=== PATIENT | female | born 1995 | race Caucasian/White ===

== ENCOUNTER 2017-07-23 00:17 | Emergency (ER) | payer BC, OTHER ==
[2017-07-23] MEDS ORDERED: Acetaminophen 500 MG TAB ONE (00:27)
[2017-07-23 01:27] LABS: #Basophils 0.1 thou/uL (0.0-0.2); #Eosinphils 0.1 thou/uL (0.0-0.7); #Lymphocytes 1.3 thou/uL (1.20-3.40); #Neutrophils 11.6 thou/uL (1.40-6.50); %Basophils 0.6 % (0.0-1.0); %Eosinophils 0.4 % (0.0-10.0); %Lymphocytes 9.4 % (21.0-51.0); %Monocytes 7.1 % (0.0-10.0); Hematocrit 41.8 % (36.0-47.0); Mean Platelet Volume 7.2 fL (7.4-10.4); Red Blood Cell (RBC) Count 4.54 mill/uL (4.20-5.40)
[2017-07-23 01:45] LABS: ALT (SGPT) 24 U/L (8-55); AST (SGOT) 13 U/L (5-34); Alkaline Phosphatase 67 U/L (40-150); Anion Gap 12 mmol/L (10-20); BUN (Urea Nitrogen) 12 mg/dL (7.0-18.7); Bilirubin, Total 0.5 mg/dL (0.2-1.2); Calc. Creatinine Clearance 0 mL/min (70-130); Calcium 9.7 mg/dL (7.8-10.44); Carbon Dioxide 23 mmol/L (22-29); Chloride 103 mmol/L (98-107); Estimated GFR-MDRD Greater than 90; Globulin 3.6 g/dL (2.4-3.5); Protein, Total 7.7 g/dL (6.0-8.3)
[2017-07-23 02:31] LABS: Bilirubin Negative (Negative); Blood, Urine Trace (Negative); Glucose, Urine (Dipstick) Negative (Negative); Ketone, Urine Negative (Negative); Nitrite Negative (Negative); Protein, Urine (Dipstick) Negative (Neg-Trace); Urobilinogen 0.2 mg/dL (0.2-1.0)
[2017-07-23 02:33] LABS: Bacteria/HPF 1+ HPF (None Seen); Hyaline Casts/LPF 0-3 HYALINE CAST LPF (0-3 Hyaline)
[2017-07-23] MEDS ORDERED: Ibuprofen 800 MG TAB ONE (03:25)
[2017-07-23] MEDS ORDERED: cefTRIAXone\\ROCEPHIN 1 GM VIAL ONE ×2 (03:25)
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
== END 2017-07-23 04:05 | disposition home or self-care (01) ==
LOC: ERS 00:17
DX: N39.0 Urinary tract infection, site not specified (principal); J45.909 Unspecified asthma, uncomplicated; F90.9 Attention-deficit hyperactivity disorder, unspecified type; F41.9 Anxiety disorder, unspecified; Z79.899 Other long term (current) drug therapy
CPT/HCPCS: 36415; 71020; 80053; 81003; 81015; 84703; 85025; 87086; 93005; J0696

== ENCOUNTER 2017-07-23 10:15 | Emergency (ER) | payer BC ==
[2017-07-23] MEDS ORDERED: Ibuprofen 800 MG TAB ONE (10:42)
[2017-07-23 10:55] LABS: #Basophils 0.1 thou/uL (0.0-0.2); #Monocytes 1.5 thou/uL (0.11-0.59); #Neutrophils 11.3 thou/uL (1.40-6.50); %Basophils 0.5 % (0.0-1.0); %Eosinophils 0.3 % (0.0-10.0); %Lymphocytes 6.8 % (21.0-51.0); %Monocytes 11.1 % (0.0-10.0); Hematocrit 36.3 % (36.0-47.0); Mean Platelet Volume 7.8 fL (7.4-10.4); Red Blood Cell (RBC) Count 3.96 mill/uL (4.20-5.40); White Blood Cell (WBC) Count 13.9 thou/uL (4.8-10.8)
[2017-07-23] MEDS ORDERED: cefTRIAXone\\ROCEPHIN 1 GM VIAL ONE (11:00)
[2017-07-23 11:12] LABS: Lactic Acid - Sepsis 1.6 mmol/L (0.5-2.2)
[2017-07-23 12:07] LABS: Calcium 8.4 mg/dL (7.8-10.44); Chloride 110 mmol/L (98-107); Magnesium 1.8 mg/dL (1.6-2.6)
[2017-07-23 12:09] LABS: Globulin 3.2 g/dL (2.4-3.5); Protein, Total 6.6 g/dL (6.0-8.3)
[2017-07-23 12:10] LABS: Anion Gap 12 mmol/L (10-20); Bilirubin, Total 0.4 mg/dL (0.2-1.2); Carbon Dioxide 20 mmol/L (22-29)
[2017-07-23 12:11] LABS: Alkaline Phosphatase 58 U/L (40-150); Calc. Creatinine Clearance 0 mL/min (70-130); Estimated GFR-MDRD Greater than 90
[2017-07-23 12:12] LABS: BUN (Urea Nitrogen) 9 mg/dL (7.0-18.7)
[2017-07-23 12:13] LABS: AST (SGOT) 14 U/L (5-34)
[2017-07-23 12:14] LABS: ALT (SGPT) 20 U/L (8-55); Lipase 11 U/L (8-78)
[2017-07-23 12:46] LABS: Bilirubin Negative (Negative); Blood, Urine Negative (Negative); Glucose, Urine (Dipstick) Negative (Negative); Ketone, Urine Negative (Negative); Nitrite Negative (Negative); Protein, Urine (Dipstick) Negative (Neg-Trace); Urobilinogen 0.2 mg/dL (0.2-1.0)
== END 2017-07-23 13:05 | disposition home or self-care (01) ==
LOC: ERS 10:15
DX: R50.9 Fever, unspecified (principal); J45.909 Unspecified asthma, uncomplicated; F90.9 Attention-deficit hyperactivity disorder, unspecified type; F41.9 Anxiety disorder, unspecified; Z79.899 Other long term (current) drug therapy
CPT/HCPCS: 36415; 71020; 80053; 81003; 81015; 83605; 83690; 83735; 84702; 84703; 85025; 85379; 87040; 87086; 93005; 96361; 96365; J0696

== ENCOUNTER 2017-08-31 18:25 | Emergency (ER) | payer BC ==
[~2017-08-31 18:25] MED LIST: ISOVUE-370 76%-LOCM 1 ML ONE
--- NOTE | 2017-08-31 21:27 | RAD ---
CHEST TWO VIEWS: History: Chest pain. Comparison: 07-23-17 FINDINGS: Cardiac silhouette and pulmonary vasculature are unremarkable. Mediastinum is midline. There is no co nfluent airspace consolidation, pneumothorax or pleural fluid evident. IMPRESSION: No active cardiopulmonary abnormalities are demonstrated. POS: [facility]
[2017-08-31 21:54] LABS: #Basophils 0.1 thou/uL (0.0-0.2); #Eosinphils 0.4 thou/uL (0.0-0.7); #Lymphocytes 2.6 thou/uL (1.20-3.40); #Monocytes 0.7 thou/uL (0.11-0.59); %Basophils 0.8 % (0.0-1.0); %Lymphocytes 20.1 % (21.0-51.0); %Monocytes 5.5 % (0.0-10.0); Hematocrit 39.9 % (36.0-47.0); Mean Platelet Volume 7.6 fL (7.4-10.4); Red Blood Cell (RBC) Count 4.34 mill/uL (4.20-5.40); White Blood Cell (WBC) Count 12.8 thou/uL (4.8-10.8)
[2017-08-31 22:15] LABS: ALT (SGPT) 19 U/L (8-55); AST (SGOT) 13 U/L (5-34); Alkaline Phosphatase 51 U/L (40-150); Anion Gap 13 mmol/L (10-20); BUN (Urea Nitrogen) 12 mg/dL (7.0-18.7); Bilirubin, Total 0.3 mg/dL (0.2-1.2); Calc. Creatinine Clearance 0 mL/min (70-130); Calcium 9.1 mg/dL (7.8-10.44); Carbon Dioxide 23 mmol/L (22-29); Chloride 106 mmol/L (98-107); Estimated GFR-MDRD Greater than 90; Globulin 3.5 g/dL (2.4-3.5); Protein, Total 7.7 g/dL (6.0-8.3)
[2017-08-31 22:19] LABS: Troponin I Less than 0.010 ng/mL (< 0.028)
[2017-08-31] MEDS ORDERED: Ketorolac Tromethamine 30 MG/ML VIAL ONE (23:47)
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
== END 2017-09-01 | disposition home or self-care (01) ==
LOC: ERS 18:25
DX: R07.89 Other chest pain (principal); M25.552 Pain in left hip; N83.202 Unspecified ovarian cyst, left side; J45.909 Unspecified asthma, uncomplicated; F90.9 Attention-deficit hyperactivity disorder, unspecified type; F41.9 Anxiety disorder, unspecified
CPT/HCPCS: 36415; 71020; 71260; 74177; 80053; 81025; 82553; 84484; 85025; 93005; 96374; J1885

== ENCOUNTER 2018-04-19 14:22 | Emergency (ER) | payer BC ==
[2018-04-19] MEDS ORDERED: Acetaminophen 500 MG TAB ONE (16:01)
[2018-04-19] MEDS ORDERED: Ondansetron HCl/PF 4 MG/2 ML Vial ONE (16:24)
[2018-04-19] MEDS ORDERED: Ibuprofen 200 MG TAB ONE (16:25)
[2018-04-19] MEDS ORDERED: Ondansetron ODT 4 MG TAB ONE (16:25)
== END 2018-04-19 16:45 | disposition home or self-care (01) ==
LOC: ERS 14:22
DX: R55 Syncope and collapse (principal); K08.89 Other specified disorders of teeth and supporting structures; R42 Dizziness and giddiness; R53.1 Weakness; J45.909 Unspecified asthma, uncomplicated; F41.9 Anxiety disorder, unspecified; F90.9 Attention-deficit hyperactivity disorder, unspecified type
CPT/HCPCS: 93005; J2405; Q0162

== ENCOUNTER 2019-08-06 09:44 | Emergency (ER) | payer BC ==
[2019-08-06] MEDS ORDERED: Ondansetron ODT 4 MG TAB ONE (10:01)
[2019-08-06] MEDS ORDERED: predniSONE 20 MG TAB ONE (10:01)
== END 2019-08-06 10:28 | disposition home or self-care (01) ==
LOC: ERS 09:44
DX: T78.1XXA Other adverse food reactions, not elsewhere classified, initial encounter (principal); R11.2 Nausea with vomiting, unspecified; I49.9 Cardiac arrhythmia, unspecified; F41.9 Anxiety disorder, unspecified; F90.9 Attention-deficit hyperactivity disorder, unspecified type
CPT/HCPCS: 99283; J7512; Q0162